=== PATIENT | male | born 1975 | race Two or more races ===

== ENCOUNTER 2023-03-02 21:36 | Emergency (ER) | payer OTHER ==
[~2023-03-02] VITALS: Ht 177.8 cm; Wt 76.7 kg
[2023-03-03 02:05] LABS: URINE APPEARANCE Clear; URINE BILIRRUBIN Negative (NEGATIVE); URINE BLOOD Negative; URINE COLOR Yellow; URINE GLUCOSE Negative (NEGATIVE); URINE LEUKOCYTE Negative; URINE NITRATE Negative; URINE PROTEIN Negative (NEGATIVE); URINE UROBILINOGEN 0.2 E.U./dl
[2023-03-03 02:15] LABS: HEMOGLOBIN 13.3 g/dL (13-16.00); MEAN CORPUSCULAR HEMOGLOBIN 33.7 pg (27.00-32.0); MEAN CORPUSCULAR HGB CONC 35.1 g/dl (32.0-36.0); PLATELET COUNT 184 K/uL (150-450); RED BLOOD COUNT 3.96 M/uL (4.00-6.00); RED CELL DISTRIBUTION WIDTH 13.3 % (11.5-14.5)
[2023-03-03 02:16] LABS: URINE BACTERIA 2.5 uL (0.0-1933); URINE EPITHELIAL CELLS 0.2 uL (0.0-38.8); URINE WBC 0.8 uL (0.0-23.2)
[2023-03-03] MEDS ORDERED: NORFLEX100MG PO (05:00)
[2023-03-03] MEDS ORDERED: KETO10TA2 PO (05:00)
== END 2023-03-03 05:11 | disposition home or self-care (01) ==
LOC: ER 21:37
PROVIDERS: General Practice
DX: B34.9 Viral infection, unspecified (principal); Z20.822 Contact with and (suspected) exposure to COVID-19; R53.81 Other malaise